=== PATIENT | female | born 1965 | race Caucasian/White ===

== ENCOUNTER 2020-12-20 11:17 | Emergency (ER) | payer BC, MEDICAID ==
[~2020-12-20 11:17] MED LIST: CIPR2.5D14 LEFTEYE; PIP1KIT21 TP
== END 2020-12-20 15:24 | disposition left against medical advice (07) ==
LOC: ER 11:18
DX: Z53.21 Procedure and treatment not carried out due to patient leaving prior to being seen by health care provider (principal)

== ENCOUNTER 2021-08-27 13:31 | Emergency (ER) | payer MEDICAID ==
[~2021-08-27] VITALS: Ht 167.6 cm; Wt 91.0 kg
[2021-08-27 14:28] LABS: BASOPHILS % (AUTO) 0.5 % (0-1); EOSINOPHILS # (AUTO) 0.1 X10'3 (0-0.9); HEMATOCRIT 37.5 % (35.0-45.0); HEMOGLOBIN 12.6 g/dl (12.0-16.0); LYMPHOCYTES # (AUTO) 1.2 X10'3 (1.1-4.8); MEAN CORPUSCULAR HEMOGLOBIN 27.4 PG (27.0-31.0); MEAN CORPUSCULAR HGB CONC 33.5 g/dL (33.0-36.5); MEAN CORPUSCULAR VOLUME 81.8 FL (78-98); MEAN PLATELET VOLUME 7.2 FL (7.4-10.4); MONOCYTES # (AUTO) 0.5 X10'3 (0-0.9); MONOCYTES % (AUTO) 7.4 % (2-12); NEUTROPHILS # (AUTO) 4.6 X10'3 (1.8-7.7); NEUTROPHILS % (AUTO) 72.1 % (42-75); PLATELET COUNT 253 X10'3 (140-440); RED BLOOD COUNT 4.58 X10'6 (4.20-5.60); RED CELL DISTRIBUTION WIDTH 13.6 % (11.5-14.5); WHITE BLOOD COUNT 6.4 X10'3 (4.5-11.0)
[2021-08-27 14:38] LABS: ALANINE AMINOTRANSFERASE 27 U/L (12-78); ALBUMIN 3.7 G/DL (3.4-5.0); ALBUMIN/GLOBULIN RATIO 0.9 (1.1-1.5); ALKALINE PHOSPHATASE 94 IU/L (46-116); ANION GAP 6 (8-16); ASPARTATE AMINO TRANSFERASE 16 U/L (10-37); BILIRUBIN,TOTAL 0.5 MG/DL (0.1-1.0); BLOOD UREA NITROGEN 14 MG/DL (7-18); BUN/CREATININE RATIO 9.7 (6.6-38.0); CALCIUM 9.1 MG/DL (8.5-10.1); CHLORIDE 104 MMOL/L (99-107); CREATININE 1.45 MG/DL (0.40-0.90); GLUCOSE 88 MG/DL (70-104); POTASSIUM 4.1 MMOL/L (3.5-5.1); SODIUM 137 MMOL/L (135-145); TOTAL CARBON DIOXIDE 26.6 MMOL/L (24-32); TOTAL PROTEIN 7.7 G/DL (6.4-8.2); eGFR 38 ML/MIN
[2021-08-27 16:18] VITALS: BP 117/80
== END 2021-08-27 14:35 | disposition home or self-care (01) ==
LOC: ER 13:32
DX: R53.1 Weakness (principal); R11.0 Nausea; R53.83 Other fatigue; R10.84 Generalized abdominal pain; Z86.14 Personal history of Methicillin resistant Staphylococcus aureus infection; Z79.2 Long term (current) use of antibiotics
CPT/HCPCS: 36415; 80053; 84439; 84443; 85025; 93005; 99284

== ENCOUNTER 2022-04-17 09:36 | Emergency (ER) | payer MEDICAID ==
[~2022-04-17] VITALS: Ht 167.6 cm; Wt 90.9 kg
[2022-04-17 09:45] VITALS: BP 152/92
[2022-04-17 10:11] LABS: BASOPHILS # (AUTO) 0.1 X10'3 (0-0.2); BASOPHILS % (AUTO) 0.7 % (0-1); EOSINOPHILS # (AUTO) 0.1 X10'3 (0-0.9); EOSINOPHILS % (AUTO) 1.5 % (0-6); HEMATOCRIT 38.5 % (35.0-45.0); HEMOGLOBIN 12.5 g/dl (12.0-16.0); LYMPHOCYTES # (AUTO) 1.9 X10'3 (1.1-4.8); MEAN CORPUSCULAR HEMOGLOBIN 27.1 PG (27.0-31.0); MEAN CORPUSCULAR HGB CONC 32.5 g/dL (33.0-36.5); MEAN CORPUSCULAR VOLUME 83.3 FL (78-98); MEAN PLATELET VOLUME 6.9 FL (7.4-10.4); MONOCYTES # (AUTO) 0.5 X10'3 (0-0.9); MONOCYTES % (AUTO) 5.7 % (2-12); NEUTROPHILS # (AUTO) 6.8 X10'3 (1.8-7.7); NEUTROPHILS % (AUTO) 72.1 % (42-75); PLATELET COUNT 339 X10'3 (140-440); RED BLOOD COUNT 4.62 X10'6 (4.20-5.60); RED CELL DISTRIBUTION WIDTH 13.9 % (11.5-14.5); WHITE BLOOD COUNT 9.5 X10'3 (4.5-11.0)
[2022-04-17 11:37] LABS: ALANINE AMINOTRANSFERASE 61 U/L (12-78); ALBUMIN 4.3 G/DL (3.4-5.0); ALBUMIN/GLOBULIN RATIO 1.1 (1.1-1.5); ALKALINE PHOSPHATASE 104 IU/L (46-116); ASPARTATE AMINO TRANSFERASE 24 U/L (10-37); BILIRUBIN,TOTAL 0.4 MG/DL (0.1-1.0); BLOOD UREA NITROGEN 20 MG/DL (7-18); BUN/CREATININE RATIO 12.3 (6.6-38.0); CALCIUM 9.3 MG/DL (8.5-10.1); CREATININE 1.62 MG/DL (0.40-0.90); GLUCOSE 107 MG/DL (70-104); MAGNESIUM 2.1 MG/DL (1.5-2.4); POTASSIUM 4.1 MMOL/L (3.5-5.1); TOTAL PROTEIN 8.3 G/DL (6.4-8.2); eGFR 33 ML/MIN
[2022-04-17 11:42] LABS: SODIUM 136 MMOL/L (135-145)
[2022-04-17 13:12] LABS: ANION GAP 10 (8-16); CHLORIDE 102 MMOL/L (99-107)
== END 2022-04-17 12:06 | disposition left against medical advice (07) ==
LOC: ER 09:36
DX: R07.9 Chest pain, unspecified (principal); Z53.21 Procedure and treatment not carried out due to patient leaving prior to being seen by health care provider
CPT/HCPCS: 36415; 80053; 83735; 83880; 84484; 85025; 93005

== ENCOUNTER 2022-05-01 16:19 | Emergency (ER) | payer MEDICAID ==
[~2022-05-01] VITALS: Ht 167.6 cm; Wt 90.0 kg
[2022-05-01 16:46] LABS: BASOPHILS % (AUTO) 0.5 % (0-1); EOSINOPHILS # (AUTO) 0.2 X10'3 (0-0.9); EOSINOPHILS % (AUTO) 1.7 % (0-6); HEMATOCRIT 40.4 % (35.0-45.0); HEMOGLOBIN 13.1 g/dl (12.0-16.0); LYMPHOCYTES % (AUTO) 21.8 % (21-51); MEAN CORPUSCULAR HEMOGLOBIN 26.6 PG (27.0-31.0); MEAN CORPUSCULAR HGB CONC 32.3 g/dL (33.0-36.5); MEAN CORPUSCULAR VOLUME 82.4 FL (78-98); MEAN PLATELET VOLUME 7.2 FL (7.4-10.4); MONOCYTES # (AUTO) 0.6 X10'3 (0-0.9); MONOCYTES % (AUTO) 6.3 % (2-12); NEUTROPHILS # (AUTO) 6.4 X10'3 (1.8-7.7); NEUTROPHILS % (AUTO) 69.7 % (42-75); PLATELET COUNT 311 X10'3 (140-440); RED CELL DISTRIBUTION WIDTH 13.8 % (11.5-14.5); WHITE BLOOD COUNT 9.1 X10'3 (4.5-11.0)
[2022-05-01 17:18] LABS: ALANINE AMINOTRANSFERASE 39 U/L (12-78); ALBUMIN 4.4 G/DL (3.4-5.0); ALBUMIN/GLOBULIN RATIO 1.1 (1.1-1.5); ALKALINE PHOSPHATASE 103 IU/L (46-116); ANION GAP 10 (8-16); ASPARTATE AMINO TRANSFERASE 20 U/L (10-37); BILIRUBIN,TOTAL 0.4 MG/DL (0.1-1.0); BLOOD UREA NITROGEN 17 MG/DL (7-18); BUN/CREATININE RATIO 12.6 (6.6-38.0); CHLORIDE 101 MMOL/L (99-107); CREATININE 1.35 MG/DL (0.40-0.90); GLUCOSE 100 MG/DL (70-104); POTASSIUM 3.9 MMOL/L (3.5-5.1); SODIUM 137 MMOL/L (135-145); TOTAL CARBON DIOXIDE 25.8 MMOL/L (24-32); TOTAL PROTEIN 8.5 G/DL (6.4-8.2); eGFR 41 ML/MIN
[2022-05-01 17:27] LABS: MAGNESIUM 2.2 MG/DL (1.5-2.4)
[2022-05-01] MEDS ORDERED: cyclobenzaprine 10mg tablet PO ONE (17:30)
[2022-05-01] MEDS ORDERED: ketorolac trometh inj. 60 MG/2 ML VIAL IM ONE (17:30)
[2022-05-01] MEDS ORDERED: LIDO1ADH67 TD (17:44)
[2022-05-01] MEDS ORDERED: CYCL-1 PO (17:44)
[2022-05-01 18:06] VITALS: BP 155/89
== END 2022-05-01 18:13 | disposition home or self-care (01) ==
LOC: ER 16:21
DX: S46.912A Strain of unspecified muscle, fascia and tendon at shoulder and upper arm level, left arm, initial encounter (principal); M25.512 Pain in left shoulder; G89.29 Other chronic pain; X58.XXXA Exposure to other specified factors, initial encounter; Y93.89 Activity, other specified; Y92.89 Other specified places as the place of occurrence of the external cause; Y99.8 Other external cause status
CPT/HCPCS: 36415; 73030; 80053; 83735; 83880; 84484; 85025; 93005; 96372; 99285; J1885

== ENCOUNTER 2022-11-14 05:18 | Inpatient (IN) | payer MEDICAID ==
[2022-11-09 12:16] LABS: BILIRUBIN,URINE NEGATIVE (Neg); CLARITY,URINE CLOUDY (Clear); COLOR,URINE YELLOW (Yellow); GLUCOSE, URINE NEGATIVE (Neg); KETONES,URINE NEGATIVE (Neg); LEUKOCYTE ESTERASE ,URINE NEGATIVE (Neg); NITRITES, URINE NEGATIVE (Neg); OCCULT BLOOD,URINE TRACE-INTACT (Neg); PROTEIN,URINE NEGATIVE (Neg); UROBILINOGEN,URINE 0.2 E.U/dL (0.2-1.0)
[2022-11-09 12:27] LABS: BASOPHILS % (AUTO) 0.6 % (0-1); EOSINOPHILS # (AUTO) 0.1 X10'3 (0-0.9); EOSINOPHILS % (AUTO) 1.5 % (0-6); LYMPHOCYTES # (AUTO) 1.8 X10'3 (1.1-4.8); LYMPHOCYTES % (AUTO) 22.9 % (21-51); MEAN CORPUSCULAR HEMOGLOBIN 26.8 PG (27.0-31.0); MEAN CORPUSCULAR VOLUME 81.2 FL (78-98); MEAN PLATELET VOLUME 6.9 FL (7.4-10.4); MONOCYTES # (AUTO) 0.5 X10'3 (0-0.9); MONOCYTES % (AUTO) 6.1 % (2-12); NEUTROPHILS # (AUTO) 5.3 X10'3 (1.8-7.7); NEUTROPHILS % (AUTO) 68.9 % (42-75); PRE OP HEMATOCRIT 35.6 % (35.0-45.0); PRE OP HEMOGLOBIN 11.8 g/dL (12.0-16.0); PRE OP PLATELET COUNT 318 X10'3 (140-440); PRE OP WHITE BLOOD COUNT 7.7 10'3 (4.8-10.8); RED BLOOD COUNT 4.39 X10'6 (4.20-5.60); RED CELL DISTRIBUTION WIDTH 13.7 % (11.5-14.5)
[2022-11-09 12:31] LABS: UA COLLECTION TYPE CLN CATCH MIDSTREAM
[2022-11-09 12:39] LABS: PRE OP PROTIME 10.3 SECONDS (9.0-12.0)
[2022-11-09 12:50] LABS: ALBUMIN 4.1 G/DL (3.4-5.0); ALBUMIN/GLOBULIN RATIO 1.1 (1.1-1.5); ALKALINE PHOSPHATASE 102 IU/L (46-116); BACTERIA,URINE 1+ /HPF (Neg); BLOOD UREA NITROGEN 26 MG/DL (7-18); BUN/CREATININE RATIO 17.6 (10.0-20.0); CALCIUM 9.3 MG/DL (8.5-10.1); CHLORIDE 99 MMOL/L (99-107); CREATININE 1.48 MG/DL (0.40-0.90); MUCUS STRANDS FEW /LPF (Neg); PRE OP ALT 45 U/L (30-65); PRE OP ANION GAP 7 (8-16); PRE OP AST 23 U/L (10-37); PRE OP BILIRUB, TOTAL 0.3 MG/DL (0.0-1.0); PRE OP GLUCOSE 94 MG/DL (70-104); PRE OP POTASSIUM 4.3 MMOL/L (3.4-5.1); PRE OP SODIUM 136 MMOL/L (135-145); RBC,URINE 0-2 /HPF (0-2); SQUAMOUS EPITHELIAL CELL,UR MANY /LPF (FEW); THYROID STIMULATING HORMONE 1.23 ulU/ml (0.34-4.50); TOTAL CARBON DIOXIDE 29.9 MMOL/L (24-32); TOTAL PROTEIN 7.9 G/DL (6.4-8.2); WBC,URINE 0-4 /HPF (0-4); eGFR 37 ML/MIN
[2022-11-14] VITALS (30 sets, daily range): BP systolic 94–133; BP diastolic 52–81; PULSE 64–88; RESP 10–18; TEMP 97.6–98.3; O2SAT 91–98
[~2022-11-14] VITALS: Ht 167.6 cm; Wt 105.4 kg
[~2022-11-14 05:18] MED LIST changes: +BUPR-317 PO; +CHOL200012 PO; -CIPR2.5D14 LEFTEYE; +CITA20TA28 PO; +CLON0.2T PO; +CLON0.5T23 PO; +DOXE6TAB4 PO; +GABA300C PO; +LOSA-416 PO; -PIP1KIT21 TP; +ROSU5TAB12 PO; +THY60T PO; +ZIPR40CA2 PO; +ringers solution, lacted 1,000 ML IV SCH
[2022-11-14] MEDS ORDERED: cefazolin 2gm/D5W 100mL 100 ML IV ONE (05:30)
[2022-11-14] MEDS ORDERED: tranexamic acid 650mg tablet PO ONE (05:30)
[2022-11-14] MEDS ORDERED: famotidine 20mg tablet PO ONE (05:30)
--- NOTE | 2022-11-14 05:55 | NUR ---
PER TOTAL JOINT PROTOCOL: BILATERAL UE PULSES ARE PALPABLE. PATIENT HAS SHOWERED WITH HIBICLENS X 3. PATIENT HAS READ THE PAMPHLET. DR TOLLIVER DOES NOT USE PRE SURGERY BACTROBAN PER PROTOCOL
[2022-11-14] MEDS ORDERED: tranexamic acid inj. 1,000 MG in normal saline 100ml IV soln 90 ML IV ONE (06:45)
[2022-11-14] MEDS ORDERED: vancomycin 1,000mg inj ONE (07:00)
[2022-11-14] MEDS ORDERED: cloNIDine hcl/PF 100mcg/ml inj ONE (07:07)
[2022-11-14] MEDS ORDERED: midazolam 1 mg/ML 2ml injection ONE (07:11)
[2022-11-14] MEDS ORDERED: fentaNYL/PF 50MCG/1 ML 2ML syringe ONE (07:11)
[2022-11-14] MEDS ORDERED: morphine 4 MG/ML inj SYRINge IV PRN (07:20)
[2022-11-14] MEDS ORDERED: sevoflurane 250ml liquid IH ONE (07:20)
[2022-11-14] MEDS ORDERED: meperidine/PF 25mg/ml syringe IV PRN ×3 (07:20)
[2022-11-14] MEDS ORDERED: proCHLORperazine 10 MG/2 ml inj IV PRN (07:20)
[2022-11-14] MEDS ORDERED: ondansetron/PF 4mg/2ml inj IV PRN (07:20)
[2022-11-14] MEDS ORDERED: morphine 2 MG/ML inj. syringe IV PRN (07:20)
[2022-11-14] MEDS ORDERED: ringers solution, lacted 1,000 ML IV SCH (07:20)
[2022-11-14] MEDS: cefazolin 2gm/D5W 100mL 100 ML IV SCH ×2 (07:23→19:27)
[2022-11-14] MEDS ORDERED: naloxone 0.4 mg/ml inj IV PRN (07:25)
[2022-11-14] MEDS ORDERED: diphenhydrAMINE 25mg capsule PO PRN (07:25)
[2022-11-14] MEDS ORDERED: bisacodyl 10mg suppository rectal RC PRN (07:25)
[2022-11-14] MEDS ORDERED: magnesium hydroxide 30ml (MOM) UD suspension PO PRN (07:25)
[2022-11-14] MEDS ORDERED: HYDROcodone/acetaminophen 10/325mg tab PO PRN (07:25)
[2022-11-14] MEDS ORDERED: acetaminophen 325mg tablet PO PRN (07:25)
[2022-11-14] MEDS ORDERED: methylene blue (5mg/ml) 50mg/10ml ampul IV ONE (08:10)
[2022-11-14] MEDS ORDERED: ROPIVAcaine 0.5% (5mg/ml) 30ml vial ONE (08:29)
[2022-11-14] MEDS ORDERED: LIDOcaine 1%/PF 5ML 10 MG/ML VIAL ONE (08:29)
[2022-11-14] MEDS ORDERED: propofol inj 20 ML IV ONE (08:29)
[2022-11-14] MEDS ORDERED: ePHEDrine 50MG/ML INJ. ONE (08:29)
[2022-11-14] MEDS ORDERED: dexamethasone sod phosphate 4mg/ml inj. ONE (08:29)
[2022-11-14] MEDS ORDERED: phenylephrine 10mg/ml inj. -priapism dosing ONE (08:29)
[2022-11-14] MEDS ORDERED: ondansetron/PF 4mg/2ml inj ONE (08:29)
[2022-11-14] MEDS ORDERED: acetaminophen 1,000mg/100ml IV 100 ML IV ONE (09:44)
[2022-11-14] MEDS ORDERED: meperidine/PF 25mg/ml syringe ONE (09:54)
--- NOTE | 2022-11-14 10:13 | NUR ---
Received from OR via HOSPITAL BED, accompanied by Anesthesiologist and report given by ERWIN Anesthesiologist. PATIENT WAKING UP, DENIES PAIN, V/S WNL, SCD ON , PIV 20G LEFT HAND, DRESSING SHOULDER WRAP TO RIGHT SIDE C/D/I WITH COLD POWDER PACK AND ARM SLING. Addendum: 11/14/22 at 1047 by Oliverio Zhang RN Amended: Links added.
--- NOTE | 2022-11-14 18:43 | NUR ---
PATIENT HAS MET ALL CRITERIA FOR TRANSFER TO ORTHO FLOOR. VSS. DRESSINGS INTACT. BED LOW, CALL LIGHT PRESENT AND 2 RAILS UP. RN PRESENT TO ACCEPT CARE OF PATIENT AND REPORT HAS BEEN CALLED. ALL QUESTIONS ANSWERED TO ACCEPTING RN. Addendum: 11/14/22 at 1852 by Oliverio Zhang RN Amended: Links added.
--- NOTE | 2022-11-14 18:45 | NUR ---
Patient in room PAS IN 900. I have received report from GWEN Turner in PACU and had the opportunity to ask questions and assume patient care.
--- NOTE | 2022-11-14 18:55 | NUR ---
Patient arrived from PACU and was transferred to hospital bed w/o problem, isabela Turner RN advised she was up to the bathroom prior to coming to the floor. She reports no pain at this time in her right shoulder, had nerve block and shoulder is still numb with some tingling to fingers.
[2022-11-14] MEDS: aspirin 325mg tablet PO SCH (19:01)
--- NOTE | 2022-11-14 19:04 | NUR ---
Patient did not get 1500 Cefazolin, per Johnny HIDALGO in PACU "I forgot".
[2022-11-14] MEDS: HYDROcodone/acetaminophen 10/325mg tab PO PRN (20:22)
[2022-11-14] MEDS: potassium cl 20mEq in 1/2 NS 1,000 ML IV SCH ×2 (20:23→20:45)
[2022-11-14] MEDS ORDERED: cloNIDine 0.1 mg tablet PO SCH (22:36)
[2022-11-14] MEDS ORDERED: doxepin 10mg capsule PO SCH (22:37)
[2022-11-14] MEDS: clonazePAM 0.5mg tablet PO SCH (23:07)
[2022-11-15] MEDS: ziprasidone 20mg capsule PO SCH ×2 (00:10→08:00)
[2022-11-15] MEDS: HYDROcodone/acetaminophen 10/325mg tab PO PRN ×3 (00:35→14:08)
[2022-11-15 02:00] VITALS: BP 117/74; PULSE 72; RESP 16; TEMP 98; O2SAT 93
[2022-11-15] MEDS ORDERED: cefazolin 2gm/D5W 100mL 100 ML IV ONE (03:00)
[2022-11-15 06:00] VITALS: BP 129/72; PULSE 72; RESP 16; TEMP 97.9; O2SAT 94
--- NOTE | 2022-11-15 06:13 | NUR ---
Problems reprioritized. Patient report given, questions answered & plan of care reviewed with GWEN Rodas.
[2022-11-15 06:40] LABS: BASOPHILS % (AUTO) 0.1 % (0-1); EOSINOPHILS % (AUTO) 0.1 % (0-6); HEMATOCRIT 30.5 % (35.0-45.0); HEMOGLOBIN 9.9 g/dl (12.0-16.0); LYMPHOCYTES # (AUTO) 1.2 X10'3 (1.1-4.8); LYMPHOCYTES % (AUTO) 8.6 % (21-51); MEAN CORPUSCULAR HEMOGLOBIN 26.6 PG (27.0-31.0); MEAN CORPUSCULAR HGB CONC 32.6 g/dL (33.0-36.5); MEAN CORPUSCULAR VOLUME 81.5 FL (78-98); MEAN PLATELET VOLUME 7.2 FL (7.4-10.4); NEUTROPHILS # (AUTO) 11.4 X10'3 (1.8-7.7); NEUTROPHILS % (AUTO) 84.2 % (42-75); PLATELET COUNT 274 X10'3 (140-440); RED BLOOD COUNT 3.74 X10'6 (4.20-5.60); RED CELL DISTRIBUTION WIDTH 13.9 % (11.5-14.5); WHITE BLOOD COUNT 13.6 X10'3 (4.5-11.0)
[2022-11-15 06:57] LABS: ANION GAP 9 (8-16); CHLORIDE 102 MMOL/L (99-107); POTASSIUM 4.2 MMOL/L (3.5-5.1); SODIUM 138 MMOL/L (135-145); TOTAL CARBON DIOXIDE 26.9 MMOL/L (24-32)
[2022-11-15] MEDS ORDERED: thyroid, pork 30mg tablet PO SCH (07:00)
[2022-11-15 08:00] VITALS: RESP 16; O2SAT 94
[2022-11-15] MEDS ORDERED: ROSUVASTATIN CALCIUM 5 MG TABLET PO SCH (08:00)
[2022-11-15] MEDS ORDERED: buPROPion SR 150mg tablet PO SCH (08:00)
[2022-11-15] MEDS ORDERED: losartan 25mg tablet PO SCH (08:00)
[2022-11-15] MEDS ORDERED: citalopram 20mg tablet PO SCH (08:00)
[2022-11-15] MEDS ORDERED: cholecalciferol (vitamin D3) 1,000 unit (25mcg) tablet PO SCH (08:00)
[2022-11-15] MEDS: aspirin 325mg tablet PO SCH (08:03)
[2022-11-15] MEDS: clonazePAM 0.5mg tablet PO SCH (08:57)
[2022-11-15] MEDS ORDERED: ketorolac trometh. 30mg/ml inj. IV STA (09:41)
[2022-11-15 10:00] VITALS: BP 144/80; PULSE 75; RESP 16; TEMP 97.5; O2SAT 93
[2022-11-15] MEDS: potassium cl 20mEq in 1/2 NS 1,000 ML IV SCH (10:05)
[2022-11-15 10:07] VITALS: RESP 16
[2022-11-15 10:16] LABS: BLOOD UREA NITROGEN 21 MG/DL (7-18); CREATININE 1.25 MG/DL (0.40-0.90); eCRCL 47 ML/MIN; eGFR 44 ML/MIN
[2022-11-15] MEDS ORDERED: cyclobenzaprine 10mg tablet PO PRN (10:20)
--- NOTE | 2022-11-15 13:21 | NUR ---
Joint surgery consult: Pt s/p shoulder surgery per EMR. Pt seen at bedside and provided written/verbal high protein nutrition education. RD contact also provided and encouraged the pt to reach out for any nutrition questions or concerns. Addendum: 11/15/22 at [address] Amended: Links added.
--- NOTE | 2022-11-15 13:30 | NUR ---
I have reviewed and agree with interventions, assessments, and documentation by Na Coles LVN.
--- NOTE | 2022-11-15 14:27 | NUR ---
Patient discharged home via [employer]. All personal belongings sent with, PIV d/c'd. Patient alert and appropriate at the time of discharge.
[2022-11-16] MEDS ORDERED: gabapentin 300mg capsule PO SCH (08:00)
[2022-11-16] MEDS ORDERED: buPROPion SR 150mg tablet PO SCH (08:35)
== END 2022-11-15 14:45 | disposition home or self-care (01) | DRG 322 ==
LOC: UNDOADMIN 05:18 → PAS IN 05:18 → ORTHO 4S 19:00
PROVIDERS: ADMIT Specialist; ATTEND Specialist
PROC: 0LS30ZZ Reposition Right Upper Arm Tendon, Open Approach (ICD-10-PCS; 2022-11-14)
PROC: 0RRJ0JZ Replacement of Right Shoulder Joint with Synthetic Substitute, Open Approach (ICD-10-PCS; principal; 2022-11-14 07:20)
DX: M19.011 Primary osteoarthritis, right shoulder (principal); E03.9 Hypothyroidism, unspecified; E78.5 Hyperlipidemia, unspecified; I10 Essential (primary) hypertension; F32.A Depression, unspecified; Z88.8 Allergy status to other drugs, medicaments and biological substances; Z79.899 Other long term (current) drug therapy; Z88.5 Allergy status to narcotic agent
CPT/HCPCS: 36415; 71046; 73030; 76000; 80051; 80053; 81001; 82565; 82948; 84443; 84520; 85025; 85610; 85730; 86885; 86900; 86901; 87081; 93005; 97110; 97161; 97530; A4565; A4615; A4618; A6449; A6455; A7000; C1713; C1776; G0378; J0131; J0690; J0735; J1100; J1885; J2175; J2250; J2370; J2405; J2704; J2795; J3010; J3370; J3480; J3490; J7120; Q9968

== ENCOUNTER 2023-07-24 05:39 | Inpatient (IN) | payer MEDICAID ==
[2023-07-17 14:55] LABS: BASOPHILS % (AUTO) 0.3 % (0-1); EOSINOPHILS # (AUTO) 0.1 X10'3 (0-0.9); LYMPHOCYTES # (AUTO) 1.5 X10'3 (1.1-4.8); LYMPHOCYTES % (AUTO) 15.2 % (21-51); MEAN CORPUSCULAR HEMOGLOBIN 25.7 PG (27.0-31.0); MEAN CORPUSCULAR HGB CONC 32.7 g/dL (33.0-36.5); MEAN CORPUSCULAR VOLUME 78.5 FL (78-98); MEAN PLATELET VOLUME 6.7 FL (7.4-10.4); MONOCYTES # (AUTO) 0.7 X10'3 (0-0.9); MONOCYTES % (AUTO) 7.3 % (2-12); NEUTROPHILS # (AUTO) 7.3 X10'3 (1.8-7.7); NEUTROPHILS % (AUTO) 76.2 % (42-75); PRE OP HEMATOCRIT 33.4 % (35.0-45.0); PRE OP PLATELET COUNT 310 X10'3 (140-440); PRE OP WHITE BLOOD COUNT 9.6 10'3 (4.8-10.8); RED BLOOD COUNT 4.26 X10'6 (4.20-5.60); RED CELL DISTRIBUTION WIDTH 17.5 % (11.5-14.5)
[2023-07-17 14:57] LABS: PRE OP HEMOGLOBIN 10.9 g/dL (12.0-16.0)
[2023-07-17 15:21] LABS: ALBUMIN 4.1 G/DL (3.4-5.0); ALKALINE PHOSPHATASE 113 IU/L (46-116); BLOOD UREA NITROGEN 18 MG/DL (7-18); CALCIUM 9.7 MG/DL (8.5-10.1); CHLORIDE 102 MMOL/L (99-107); CREATININE 1.38 MG/DL (0.40-0.90); PRE OP ALT 35 U/L (30-65); PRE OP ANION GAP 14 (8-16); PRE OP AST 21 U/L (10-37); PRE OP BILIRUB, TOTAL 0.3 MG/DL (0.0-1.0); PRE OP GLUCOSE 103 MG/DL (70-104); PRE OP POTASSIUM 3.8 MMOL/L (3.4-5.1); PRE OP SODIUM 140 MMOL/L (135-145); THYROID STIMULATING HORMONE 2.79 ulU/ml (0.34-4.50); TOTAL CARBON DIOXIDE 24.4 MMOL/L (24-32); TOTAL PROTEIN 8.3 G/DL (6.4-8.2); eGFR 40 ML/MIN
[2023-07-24] VITALS (21 sets, daily range): BP systolic 92–124; BP diastolic 49–81; PULSE 67–85; RESP 12–17; TEMP 97.4–98.3; O2SAT 91–99
[~2023-07-24] VITALS: Ht 167.6 cm; Wt 109.6 kg
[~2023-07-24 05:39] MED LIST changes: -CHOL200012 PO; -CITA20TA28 PO; +CITA40TA22 PO; -DOXE6TAB4 PO; -GABA300C PO; +LISD70CA PO; -LOSA-416 PO; +LOSA50TA64 PO; +OMEP20CA16 PO; -THY60T PO; +THYR90TA PO; -ZIPR40CA2 PO; +ZIPR60CA7 PO; -ringers solution, lacted 1,000 ML IV SCH
[2023-07-24 06:16] LABS: BILIRUBIN,URINE NEGATIVE (Neg); CLARITY,URINE SLIGHTLY CLOUDY (Clear); COLOR,URINE YELLOW (Yellow); GLUCOSE, URINE NEGATIVE (Neg); KETONES,URINE NEGATIVE (Neg); LEUKOCYTE ESTERASE ,URINE TRACE (Neg); NITRITES, URINE NEGATIVE (Neg); OCCULT BLOOD,URINE NEGATIVE (Neg); PROTEIN,URINE NEGATIVE (Neg); UROBILINOGEN,URINE 0.2 E.U/dL (0.2-1.0)
[2023-07-24 06:18] LABS: UA COLLECTION TYPE CLN CATCH MIDSTREAM
[2023-07-24] MEDS: famotidine 20mg tablet PO ONE (06:23)
[2023-07-24] MEDS: cefazolin 2gm/D5W 100mL 100 ML IV ONE (06:23)
[2023-07-24] MEDS: ringers solution, lacted 1,000 ML IV SCH ×2 (06:23→18:35)
[2023-07-24 06:24] LABS: SQUAMOUS EPITHELIAL CELL,UR MANY /LPF (FEW)
[2023-07-24 06:25] LABS: BACTERIA,URINE FEW /HPF (Neg)
[2023-07-24 06:27] LABS: RBC,URINE 0-2 /HPF (0-2)
[2023-07-24 06:30] LABS: TRANSITIONAL EPI CELLS,URINE MODERATE /HPF
[2023-07-24] MEDS ORDERED: Thrombin (Bovine) 5,000 unit vial TP ONE (06:57)
[2023-07-24] MEDS ORDERED: gelatin sponge, absorbable (Gelfoam 100) sponge TP ONE (06:57)
[2023-07-24] MEDS ORDERED: cloNIDine hcl/PF 100mcg/ml inj ONE (06:59)
[2023-07-24] MEDS ORDERED: labetalol 20mg/4ml (5mg/ml) syringe IV PRN (07:10)
[2023-07-24] MEDS: potassium cl 20mEq in 1/2 NS 1,000 ML IV SCH (07:10)
[2023-07-24] MEDS ORDERED: HYDROmorphone/PF 0.2 MG/ML SYRINGE IV PRN ×2 (07:10)
[2023-07-24] MEDS ORDERED: HYDROcodone/acetaminophen 5mg/325mg tablet PO PRN (07:10)
[2023-07-24] MEDS ORDERED: sevoflurane 250ml liquid IH ONE (07:10)
[2023-07-24] MEDS ORDERED: acetaminophen 325mg tablet PO PRN (07:10)
[2023-07-24] MEDS ORDERED: proCHLORperazine 10 MG/2 ml inj IV PRN (07:10)
[2023-07-24] MEDS ORDERED: bisacodyl 10mg suppository rectal RC PRN (07:10)
[2023-07-24] MEDS ORDERED: ondansetron/PF 4mg/2ml inj IV PRN ×2 (07:10)
[2023-07-24] MEDS ORDERED: hydrALAZINE 20mg/ml inj. IV PRN (07:10)
[2023-07-24] MEDS ORDERED: naloxone 0.4 mg/ml inj IV PRN (07:10)
[2023-07-24] MEDS ORDERED: diphenhydrAMINE 25mg capsule PO PRN (07:10)
[2023-07-24] MEDS ORDERED: fentaNYL/PF 50MCG/1 ML 2ML syringe IV PRN ×2 (07:10)
[2023-07-24] MEDS ORDERED: magnesium hydroxide 30ml (MOM) UD suspension PO PRN (07:10)
[2023-07-24] MEDS ORDERED: fentaNYL/PF 50MCG/1 ML 2ML syringe ONE (07:18)
[2023-07-24] MEDS ORDERED: midazolam 1 mg/ML 2ml injection ONE (07:19)
[2023-07-24] MEDS ORDERED: 0.9 % SODIUM CHLORIDE 10 ML VIAL ONE ×3 (08:01→09:45)
[2023-07-24] MEDS ORDERED: LIDOcaine 2% (20mg/ml) 5ml vial ONE (08:01)
[2023-07-24] MEDS ORDERED: propofol inj 20 ML IV ONE (08:01)
[2023-07-24] MEDS ORDERED: rocuronium 10mg/ml inj IV ONE (08:01)
[2023-07-24] MEDS ORDERED: dexamethasone sod phosphate 4mg/ml inj. ONE ×2 (08:01→09:45)
[2023-07-24] MEDS ORDERED: ROPIVAcaine 0.5% (5mg/ml) 30ml vial ONE (08:01)
[2023-07-24] MEDS ORDERED: LIDOcaine 1%/PF 5ML 10 MG/ML VIAL ONE (08:02)
[2023-07-24] MEDS ORDERED: ePHEDrine 50MG/ML INJ. ONE (08:02)
[2023-07-24] MEDS: vancomycin 1,000mg inj ONE (08:24)
[2023-07-24] MEDS: methylene blue (5mg/ml) 50mg/10ml ampul IV ONE (08:25)
[2023-07-24] MEDS ORDERED: phenylephrine 10mg/ml inj. -priapism dosing ONE (09:45)
[2023-07-24] MEDS ORDERED: ondansetron/PF 4mg/2ml inj ONE (09:45)
[2023-07-24] MEDS: tranexamic acid inj. 1,000 MG in normal saline IV soln 100ML IV ONE (18:34)
[2023-07-24] MEDS: acetaminophen 1,000mg/100ml IV 100 ML IV ONE (18:35)
[2023-07-24] MEDS: HYDROcodone/acetaminophen 5mg/325mg tablet PO PRN (18:38)
[2023-07-24] MEDS: cefazolin 2gm/D5W 100mL 100 ML IV SCH (18:43)
[2023-07-24] MEDS: clonazePAM 0.5mg tablet PO SCH (18:49)
[2023-07-24] MEDS: cloNIDine 0.1 mg tablet PO SCH (21:07)
[2023-07-24] MEDS: ziprasidone 20mg capsule PO SCH (21:07)
[2023-07-24] MEDS: temazepam 15mg capsule PO PRN (22:10)
[2023-07-25 02:00] VITALS: BP 114/67; PULSE 71; RESP 16; TEMP 97.6; O2SAT 96
[2023-07-25 05:00] VITALS: BP 124/63; PULSE 85; RESP 17; TEMP 98.3; O2SAT 92
[2023-07-25 06:00] VITALS: BP 140/80; PULSE 77; RESP 16; TEMP 98.9; O2SAT 93
[2023-07-25 06:36] LABS: BASOPHILS % (AUTO) 0.1 % (0-1); EOSINOPHILS % (AUTO) 0 % (0-6); HEMATOCRIT 27.9 % (35.0-45.0); HEMOGLOBIN 9.2 g/dl (12.0-16.0); LYMPHOCYTES % (AUTO) 6.8 % (21-51); MEAN CORPUSCULAR HEMOGLOBIN 26.3 PG (27.0-31.0); MEAN CORPUSCULAR HGB CONC 33.1 g/dL (33.0-36.5); MEAN CORPUSCULAR VOLUME 79.6 FL (78-98); MEAN PLATELET VOLUME 7.1 FL (7.4-10.4); MONOCYTES # (AUTO) 0.9 X10'3 (0-0.9); MONOCYTES % (AUTO) 6.6 % (2-12); NEUTROPHILS # (AUTO) 12.2 X10'3 (1.8-7.7); NEUTROPHILS % (AUTO) 86.5 % (42-75); PLATELET COUNT 258 X10'3 (140-440); WHITE BLOOD COUNT 14.1 X10'3 (4.5-11.0)
[2023-07-25 06:50] LABS: ANION GAP 7 (8-16); CHLORIDE 105 MMOL/L (99-107); POTASSIUM 4.2 MMOL/L (3.5-5.1); SODIUM 140 MMOL/L (135-145); TOTAL CARBON DIOXIDE 27.9 MMOL/L (24-32)
[2023-07-25] MEDS: thyroid, pork 30mg tablet PO SCH (08:30)
[2023-07-25] MEDS: losartan 50mg tablet PO SCH (08:30)
[2023-07-25] MEDS: buPROPion SR 150mg tablet PO SCH (08:31)
[2023-07-25] MEDS: citalopram 20mg tablet PO SCH (08:32)
[2023-07-25] MEDS: pantoprazole 40mg Tablet.DR PO SCH (08:32)
[2023-07-25] MEDS: atorvastatin 20mg tablet PO SCH (08:33)
[2023-07-25] MEDS: lisdexamfetamine dimesylate 10mg capsule PO SCH (08:34)
[2023-07-25 08:42] VITALS: RESP 18
[2023-07-25 10:00] VITALS: BP 116/70; PULSE 75; RESP 18; TEMP 97.7; O2SAT 92
[2023-07-25] MEDS ORDERED: ASPI-1 PO (10:05)
[2023-07-25] MEDS ORDERED: atorvastatin 20mg tablet PO SCH (10:08)
== END 2023-07-25 13:45 | disposition home or self-care (01) | DRG 322 ==
LOC: PAS IN 05:39 → ORTHO 4S 11:41 → EDSTATUS 14:00
PROVIDERS: ADMIT Specialist; ATTEND Specialist
PROC: 0LS40ZZ Reposition Left Upper Arm Tendon, Open Approach (ICD-10-PCS; 2023-07-24)
PROC: 3E0T3BZ Introduction of Anesthetic Agent into Peripheral Nerves and Plexi, Percutaneous Approach (ICD-10-PCS; 2023-07-24)
PROC: 0RRK0JZ Replacement of Left Shoulder Joint with Synthetic Substitute, Open Approach (ICD-10-PCS; principal; 2023-07-24 07:10)
DX: M19.012 Primary osteoarthritis, left shoulder (principal); E03.9 Hypothyroidism, unspecified; Z79.899 Other long term (current) drug therapy; F32.A Depression, unspecified; F41.9 Anxiety disorder, unspecified; I10 Essential (primary) hypertension; M25.712 Osteophyte, left shoulder; E78.5 Hyperlipidemia, unspecified; Z88.8 Allergy status to other drugs, medicaments and biological substances
CPT/HCPCS: 36415; 71045; 73030; 76000; 80051; 80053; 81001; 82948; 84443; 85025; 85610; 85730; 86885; 86900; 86901; 87081; 97161; 97530; A4565; A4615; A4618; A6449; A6455; A7000; C1713; C1776; G0378; J0690; J0735; J1100; J2250; J2370; J2405; J2704; J2795; J3010; J3370; J3480; J3490; J7040; J7120; Q9968

== ENCOUNTER 2023-10-26 06:04 | Outpatient (CLI) | payer MEDICAID ==
[~2023-10-26 06:04] MED LIST changes: -BUPR-317 PO; +BUPR-561 PO; -ROSU5TAB12 PO; +ROSU5TAB43 PO
[2023-10-26] MEDS ORDERED: GADOTERATE MEGLUMINE 7.5 MMOL/15 ML VIAL IV ONE (06:27)
[2023-10-26] MEDS ORDERED: LIDOcaine 1% 30ml preserv. free vial ONE (06:27)
[2023-10-26] MEDS ORDERED: LIDOcaine 1%/PF 5ML 10 MG/ML VIAL ONE (06:27)
[2023-10-26] MEDS ORDERED: iohexol 300 MG/1 ML 50ml polymer ONE (06:27)
== END 2023-10-26 23:59 | disposition home or self-care (01) ==
LOC: RAD 06:04 → EDSTATUS 07:00 → RAD 23:59
PROVIDERS: ATTEND Specialist
DX: M19.012 Primary osteoarthritis, left shoulder (principal); Z96.612 Presence of left artificial shoulder joint
CPT/HCPCS: 23350; 73201; 77002; J3490; Q9967; 77003; A9575

== ENCOUNTER 2024-01-01 12:24 | Outpatient (CLI) | payer MEDICAID | END 2024-01-01 23:59 | disposition home or self-care (01) | LOC: RAD 12:24 | PROVIDERS: ATTEND Specialist | DX: R07.9 Chest pain, unspecified (principal); M19.012 Primary osteoarthritis, left shoulder; M25.512 Pain in left shoulder; M75.102 Unspecified rotator cuff tear or rupture of left shoulder, not specified as traumatic | CPT/HCPCS: 71045 ==

== ENCOUNTER → 2024-10-22 | Emergency (ER) | payer MEDICAID ==
[~2024-10-22] VITALS: Ht 167.6 cm; Wt 101.4 kg
[~2024-10-22] MED LIST changes: -BUPR-561 PO; +BUPR-726 PO; -ROSU5TAB43 PO; +ROSU5TAB51 PO
[2024-10-22 13:35] VITALS: TEMP 99.1
--- NOTE | 2024-10-22 13:48 | ELECTROCARDIOGRAPH REPORT ---
[facility] Test Date: 2024-10-22 Test Time: 13:45:35 Pat Name: ECHO WILLIAMSON Department: EMERGENCY ROOM Room: Gender: F [employer]ionics Electronics Technician: JASON : 1965 Requested By: ELKE CARMONA Order Number: [id number] Reading MD: Dr. Poncho Anderson Measurements Intervals [place] Rate: 87 P: 41 GA: 161 QRS: 35 QRSD: 87 T: 37 QT: 396 QTc: 477 Interpretive Statements Sinus rhythm Abnormal R-wave progression, early transition Electronically Signed On 10-22-2024 18:20:[address] Poncho Anderson Please click the below link to view image of tracing.
[2024-10-22 13:56] LABS: MEAN PLATELET VOLUME 7.2 FL (7.4-10.4); RED CELL DISTRIBUTION WIDTH 14.4 % (11.5-14.5)
--- NOTE | 2024-10-22 14:10 | RADIOLOGY REPORT ---
CHEST RADIOGRAPH Indication: CP Technique: Single frontal view of the chest was obtained Comparison: DI CHEST,SINGLE VIEW on DOS: 01/01/24, DI CHEST,SINGLE VIEW on DOS: 07/24/23 FINDINGS: Lines and Tubes: None Lungs: No focal consolidation. Pleura: No effusion. No pneumothorax. Cardiomediastinal contours: Unremarkable Bones: No acute osseous abnormality. Small to moderate size hiatal hernia. IMPRESSION: No acute cardiopulmonary disease.
[2024-10-22 14:17] LABS: CREATININE 1.45 MG/DL (0.40-0.90); PRO BRAIN NATRIURETIC PEPTIDE < 30 PG/ML (0-125); TOTAL CARBON DIOXIDE 26.0 MMOL/L (24-32); eCRCL 40 ML/MIN; eGFR 37 ML/MIN
[2024-10-22] MEDS: normal saline 1000ML IV soln IVB ONE (14:20)
--- NOTE | 2024-10-22 14:53 | Physician Documentation ---
History of Present Illness ~ Chief Complaint: Hypotension Stated Complaint: LOW BLOOD PRESSURE Time Seen by MD: 14:09 OK to notify your PCP?: Yes Primary Medical Doctor: [facility] Source: patient Mode of Arrival: POV Exam Limitations: no limitations HPI Chief Complaint: Weak and dizzy Caveat: None Independent Historians: None History of Present Illness: Patient is a 58-year-old woman who comes in complaining of low blood pressure over the last three days. At 4:30 a.m. this morning when she got out of bed she felt very dizzy and lightheaded. She has been feeling generally weak and fatigued over the last three days. Patient did not take her lisinopril. Patient states that she has blood pressure that is sometimes high well over 200 systolic and then we will have low blood pressure. Patient states that this has been a problem. Patient is on low-dose lisinopril 5 mg daily which she did not take this morning. Patient denies any other associated symptoms. No chest pain. But she has had some shortness a breath with exertion over the last three days. No fever, no cough, no nausea vomiting diarrhea, no abdominal pain. Review of systems: All systems were reviewed and are negative except for what is indicated in the history of present illness. Past Medical History: HTN, labile blood pressure Past Surgical History: Noncontributory Social History: No tobacco use, no alcohol use, no drug use Medications: Reviewed as documented Nursing Notes Allergies: Reviewed as documented in Nursing Notes Medication Reconciliation Allergies: Coded Allergies: tramadol (Verified Allergy, Intermediate, HIVES, 10/22/24) venlafaxine (Verified Allergy, Intermediate, HIVES, 10/22/24) Scheduled Bupropion HCl (Bupropion Xl), 1 TAB PO QAM, (Reported) Citalopram Hydrobromide (Celexa), 1 TAB PO DAILY, (Reported) Clonazepam (Clonazepam), 1 TAB PO Q8H, (Reported) Clonidine HCl (Clonidine HCl), 1 TABLET PO HS, (Reported) Lisdexamfetamine Dimesylate (Vyvanse), 1 CAP PO QAM, (Reported) Losartan Potassium (Losartan Potassium), 1 TAB PO DAILY, (Reported) Omeprazole (Omeprazole), 1 CAP PO DAILY, (Reported) Rosuvastatin Calcium (Rosuvastatin Calcium), 1 TAB PO MWF, (Reported) Thyroid (Meredith Thyroid), 1 TAB PO DAILY, (Reported) Ziprasidone Hcl (Ziprasidone Hcl), 1 CAP PO BID, (Reported) Past Medical History Past Medical History: Thyroid (unspecified), Chronic Pain, MRSA Abscess Past Surgical History: no surgical history Alcohol Use: None Drug Use: none Lives In: Home Review of Systems All Other Systems at this time: Reviewed and Negative ROS Patient denies any other acute symptoms other than above. All other systems are negative Physical Exam Vital Signs: RN Vital Signs have been reviewed: Yes, Temperature: 99.1, Source: Temporal, Heart Rate: 86, Respiratory Rate: 16, BP: 118/67, Pulse Oximetry: 97, Weight: 101.400 Oxygen Flow Rate: 0 Pulse Oximetry Reflects: adequate oxygenation Physical Exam General Appearance: No distress HEENT: Normal OP, moist oral mucosa, PERRL, EOMI Neck: supple, normal ROM, trachea midline Pulmonary: No respiratory distress, CTA, BS equal Cardiac: RRR, no murmur, rub or gallop, GI: nondistended, soft, nontender, normal bowel sounds, no guarding, no rebound Extremities: normal ROM, no swelling, non-tender Skin: intact, dry, warm, no rashes Neuro: AAOx3, speech is clear, no focal motor weakness Psych: normal affect, good eye contact, no apparent hallucination, normal speech Progress Results/Orders Results/Orders Orders - ELKE CARMONA MD Chest,Single View (10/22/24 13:40) Monitor (10/22/24 13:40) Saline Lock (10/22/24 13:40) Oxygen (10/22/24 13:40) Hs Troponin I W Calculations (10/22/24 15:40) Hs Troponin I W Calculations (10/22/24 16:40) Orthostatic Vs (10/22/24 14:19) Completed Orders - ELKE CARMONA MD Chest,Single View (10/22/24 13:40) Cbc/Diff (10/22/24 13:40) BMP (10/22/24 13:40) PBNP (10/22/24 13:40) Electrocardiogram (10/22/24 13:40) Hs Troponin I W Calculations (10/22/24 13:40) Normal Saline 1000ml (0.9% Sodium Chlori (10/22/24 14:20) Vital Signs 10/22/24 10/22/24 13:35 14:54 Temp 99.1 Pulse 86 77 83 Resp 16 B/P (MAP) 118/67 86/63 97/71 Pulse Ox 97 O2 Flow Rate 0 Laboratory Tests Test 10/22/24 13:49 White Blood Count 10.3 Red Blood Count 4.53 Hemoglobin 12.0 Hematocrit 35.8 Mean Corpuscular Volume 78.9 Mean Corpuscular Hemoglobin 26.6 L Mean Corpuscular Hemoglobin Concent 33.7 Red Cell Distribution Width 14.4 Platelet Count 295 Mean Platelet Volume 7.2 L Neutrophils (%) (Auto) 73.0 Lymphocytes (%) (Auto) 17.4 L Monocytes (%) (Auto) 8.1 Eosinophils (%) (Auto) 0.9 Basophils (%) (Auto) 0.6 Neutrophils # (Auto) 7.5 Lymphocytes # (Auto) 1.8 Monocytes # (Auto) 0.8 Eosinophils # (Auto) 0.1 Basophils # (Auto) 0.1 CBC Comment Sodium Level 138 Potassium Level 4.3 Chloride Level 102 Carbon Dioxide Level 26.0 Anion Gap 10 Blood Urea Nitrogen 18 Creatinine 1.45 H Estimated GFR/1.73 m2 37 BUN/Creatinine Ratio 12.4 Glucose Level 79 Calcium Level 9.1 Troponin I High Sensitivity < 4 L Troponin I High Sens Percent Delta Troponin I Hi Sens Absolute Change Pro-B-Type Natriuretic Peptide < 30 Albumin 3.7 Chemistry Comments Medical Decision Making Findings Differential diagnosis includes but is not limited to: Medication side effect, orthostatic hypotension, dehydration, sepsis, GI bleed EKG independent interpretation: Chest x-ray, single view, indication: Hypotension Independent interpretation: Lungs are clear, normal mediastinum, normal cardiac silhouette. No acute cardiopulmonary process. Laboratory data independent interpretation: CBC: Unremarkable BMP: Unremarkable 1st troponin: <4 Emergency department course/medical decision-making: Cause with the patient's labile blood pressure is unknown. Patient's blood pressure has normalized here. Patient was given 1 L of IV normal saline. Patient's blood pressure actually increases when she sits up from lying pos ition. No infection has been identified. Patient does not have any symptoms of a GI bleed. Patient is stable for discharge. No medical or surgical emergency has been identified. Patient is instructed to follow up with her primary care doctor in two discontinue the use of lisinopril at this time. Test results and treatment plan and need for follow up as above was discussed with the patient. Departure Time of Disposition: 15:40 Disposition: 01 HOME / SELF CARE / HOMELESS Impression: Primary Impression: Hypotension Qualified Codes: I95.9 - Hypotension, unspecified Additional Impression: Labile blood pressure Condition: Improved Discharge Instructions: Hypertension, Adult, [id number], Hypotension, [id number] Additional Instructions: FOLLOW UP WITH YOUR PRIMARY CARE DOCTOR. DISCONTINUE THE LISINOPRIL AT THIS TIME UNLESS YOUR BLOOD PRESSURES OVER 150 SYSTOLIC. RETURN TO THE ER IF YOU HAVE ANY RECURRENT OR PERSISTENT LOW BLOOD PRESSURE. Referrals: NO PRIMARY CARE PROVIDER (PCP) Education Educated: Patient Educated regarding: diagnosis, treatment, need for follow up Signature Scribe Signature: NO SCRIBE Attestation: NO SCRIBE ELKE CARMONA MD Oct 22, 2024 14:53
[2024-10-22 16:45] VITALS: BP 105/69; PULSE 71; RESP 15; O2SAT 98
== END | disposition home or self-care (01) ==
LOC: ER 13:26
DX: I95.9 Hypotension, unspecified (principal); R09.89 Other specified symptoms and signs involving the circulatory and respiratory systems; Z88.5 Allergy status to narcotic agent; Z88.8 Allergy status to other drugs, medicaments and biological substances; Z79.899 Other long term (current) drug therapy
CPT/HCPCS: 36415; 71045; 80048; 83880; 84484; 85025; 93005; 96360; 99285; J7030; J7040